=== PATIENT | male | born 2000 | race Two or more races ===

== ENCOUNTER 2022-05-04 17:01 | Emergency (ER) | payer SELFPAY ==
[2022-05-04 17:11] VITALS: PULSE 82; RESP 18; TEMP 36.8; O2SAT 97; BMI 32.0
[2022-05-04 20:34] LABS: Appearance Urine Turbid; Color Urine Yellow; Glucose Urine UA Negative (Negative); Leukocyte Esterase Urine Large (3+) (Negative); Nitrite Urine Negative (Negative); UMIC TRIGGER UACC YES; Urine Blood Moderate (2+) (Negative); Urine Ketones Negative (Negative); Urine Protein 100 (2+) mg/dL (Neg-Trace)
[2022-05-04 20:40] LABS: Bacteria Urine 1+ (None Seen); Hyaline Casts Urine 0-2 /LPF (0-2); Squamous Epithelial Cell Urine 0-2 /HPF (0-2); UACC Culture Trigger YES; WBC Urine >50 /HPF (0-5)
[2022-05-04 20:52] VITALS: BP 137/77; PULSE 71; RESP 16; TEMP 37.2; O2SAT 97
--- NOTE | 2022-05-04 22:05 | PC.NURSE ---
PT LEFT, US CANCELED.
== END 2022-05-04 22:08 | disposition left against medical advice (07) ==
PROVIDERS: Emergency Provider Emergency Medicine
DX: N48.89 Other specified disorders of penis (principal); Z79.899 Other long term (current) drug therapy
CPT/HCPCS: 81001; 87086; 99282

== ENCOUNTER 2022-05-05 11:47 | Emergency (ER) | payer SELFPAY ==
[2022-05-05 12:15] VITALS: BP 120/64; PULSE 82; RESP 18; TEMP 36.9; O2SAT 100; BMI 32.0
--- NOTE | 2022-05-05 12:15 | ED_ITS ---
HPI - General Adult General Chief complaint: General Medical <Charley Sherman MD - Last Filed: 05/05/22 12:36> Stated complaint: Genital pain <Charley Sherman MD - Last Filed: 05/05/22 12:36> Time Seen by Provider: 05/05/22 14:03 <Charley Sherman MD - Last Filed: 05/05/22 12:36> Source: patient <Joanna ArteagaCELE - Last Filed: 05/05/22 18:16> Mode of arrival: ambulatory <Joanna ArteagaCELE - Last Filed: 05/05/22 18:16> Limitations: no limitations <Joanna ArteagaCELE - Last Filed: 05/05/22 18:16> History of Present Illness HPI narrative: Patient is a 21-year-old male presents emergency department for evaluation of penile pain swelling inability to retract the foreskin. Patient states that approximately 4 days ago wall sleeping he awoke with an erect penis, upon turning onto his stomach he heard a popping noise, followed by some pain initially. However he was able to fall right back asleep. He reports no complications or pain over the following 2 days. However the past 2 days he has been experiencing swelling to the penis and inability to retract the foreskin. It is painful to touch. States it is not currently improved. He does endorse some burning sensation upon urination, and a whitish discharge to the penis. <Joanna ArteagaCELE - Last Filed: 05/05/22 18:16> Related Data Home medications: Previous Rx's Medication Instructions Recorded cefuroxime axetil 250 mg tablet 250 mg PO Q12H 7 days #14 tabs 05/05/22 <Charley Sherman MD - Last Filed: 05/05/22 12:36> Allergies/adverse reactions: Allergies Allergy/AdvReac Type Severity Reaction Status Date / Time No Known Allergies Allergy Verified 05/05/22 13:12 <Charley Sherman MD - Last Filed: 05/05/22 12:36> Review of Systems Review of Systems: Constitutional: No weight loss, fever, chills, weakness or fatigue. Skin: No rash or itching. Cardiovascular: No chest pain. No palpitations Respiratory: No shortness of breath, cough or sputum production. Gastrointestinal: No nausea, vomiting or diarrhea. No abdominal pain Genitourinary: As noted in HPI Musculoskeletal: No muscle pain, back pain, joint pain or stiffness. Psychiatric: No depression or anxiety. <Joanna Arteaga CNP - Last Filed: 05/05/22 18:16> Yes all other systems are reviewed and are negative <Joanna Arteaga CNP - Last Filed: 05/05/22 18:16> FORMERLY [facility], [facility] Past Medical History Attestation statement: The following information was validated with the patient. <Joanna Arteaga CNP - Last Filed: 05/05/22 18:16> Source: old records reviewed <Joanna Arteaga CNP - Last Filed: 05/05/22 18:16> Social History Social History: Social History Advance Directives: No Advance Directives Information Provided: No <Charley Sherman MD - Last Filed: 05/05/22 12:36> Physical Exam ED Vital Signs: Vital Signs - 24 hr 05/05/22 12:15 Temperature 98.5 F Pulse Rate 82 Respiratory Rate 18 Blood Pressure 120/64 Pulse Oximetry 100 Oxygen Delivery Method Room Air BMI result Body Mass Index 32.0 <Charley Sherman MD - Last Filed: 05/05/22 12:36> Vital Signs - 24 hr 05/05/22 12:15 Temperature 98.5 F Pulse Rate 82 Respiratory Rate 18 Blood Pressure 120/64 Pulse Oximetry 100 Oxygen Delivery Method Room Air BMI result Body Mass Index 32.0 <Joanna Arteaga CNP - Last Filed: 05/05/22 18:16> Appearance: Alert.?Oriented to person, place and time. No acute distress.?Normal affect. Eyes: Pupils equal, round and reactive to light.? ENT: Pharynx normal.?? Neck: Normal inspection.? Neck supple.?? CVS: Heart sounds normal. Normal heart rate and rhythm.? Pulses normal.?? Respiratory: No respiratory distress.? Lung sounds clear to auscultation bilaterally?? Abdomen: Soft and non-tender. Normoactive bowel sounds. Genitourinary: performed with research electrician, ED PASHA Campbell; Phimosis present, unable to visualize the glans, tenderness upon palpation to the shaft however is soft, without any lesions, rashes, no testicular swelling? Skin: Skin warm and dry.? Normal skin color.? Extremities: No lower extremity edema.? Neuro: Moves all extremities spontaneously. Sensation intact bilaterally. No focal neuro deficits. Ambulates with normal steady gait. <Joanna Arteaga CNP - Last Filed: 05/05/22 18:16> Course Course Course Narrative: -pt c/o 2 days of hearing something popping and penis started becoming swollen, pt states that he cannot pull the foreskin back to clean -c/o of mild disuria -took ibuprofen -came yesterday, gave urine sample, left without being seen -on PE: glands very swollen, foreskin covering the glands, cannot be pulled back, painful to touch, no priapism, whitish discharge present -CT NG and UA pending, discussed with triage nurse and PA to give priority to this pt <Charley Sherman MD - Last Filed: 05/05/22 12:36> Reevaluation(s) Reevaluation #1: Patient is a 21-year-old male who presents emergency department for evaluation of penile pain and swelling. Denies any concern for sexually transmitted infections. He does report pain with urination, urinalysis reveals leukocyte esterase and wbc's to be present without any evidence of bacteriuria. Lower suspicion for urinary tract infection at this time, however given pain will treat prophylactically with antibiotic and follow urine culture. Testing for chlamydia and gonorrhea are pending at this time. Phimosis present on examination, glans not visualized. Discussed this case with Urology Dr. Garcia, advised outpatient follow-up in urology office. Worsening signs and symptoms to return back to the emergency department for. All questions answered. Patient discharged home in stable condition. <Joanna Arteaga CNP - Last Filed: 05/05/22 18:16> Time: 14:51 <Joanna Arteaga CNP - Last Filed: 05/05/22 18:16> Medical Decision Making Medical Records Medical records reviewed: Yes I reviewed the patient's medical records. <Joanna Arteaga CNP - Last Filed: 05/05/22 18:16> Lab Data Lab results reviewed: Yes I reviewed the patient's lab results. <Joanna Arteaga CNP - Last Filed: 05/05/22 18:16> Labs: Lab Results 05/05/22 Range/Units 12:32 Urine Color Yellow Urine Appearance Cloudy Urine pH 7.5 (5.0-9.0) Ur Specific [place] 1.015 (1.005-1.025) Urine Protein Trace (Neg-Trace) mg/dL Urine Glucose (UA) Negative (Negative) mg/dL Urine Ketones Negative (Negative) mg/dL Urine Blood Trace (Negative) Urine Nitrite Negative (Negative) Ur Leukocyte Esterase Large (3+) H (Negative) Urine RBC 3-5 H (0-2) /HPF Urine WBC >50 (0-5) /HPF Ur Squamous Epith Cells 0-2 (0-2) /HPF Urine Bacteria None Seen (None Seen) Hyaline Casts 0-2 (0-2) /LPF <Charley Sherman MD - Last Filed: 05/05/22 12:36> Lab Results 05/05/22 Range/Units 12:32 Urine Color Yellow Urine Appearance Cloudy Urine pH 7.5 (5.0-9.0) Ur Specific [place] 1.015 (1.005-1.025) Urine Protein Trace (Neg-Trace) mg/dL Urine Glucose (UA) Negative (Negative) mg/dL Urine Ketones Negative (Negative) mg/dL Urine Blood Trace (Negative) Urine Nitrite Negative (Negative) Ur Leukocyte Esterase Large (3+) H (Negative) Urine RBC 3-5 H (0-2) /HPF Urine WBC >50 (0-5) /HPF Ur Squamous Epith Cells 0-2 (0-2) /HPF Urine Bacteria None Seen (None Seen) Hyaline Casts 0-2 (0-2) /LPF <Joanna Arteaga CNP - Last Filed: 05/05/22 18:16> Discharge Plan Discharge Clinical Impression: Acquired phimosis of penis <Charley Sherman MD - Last Filed: 05/05/22 12:36> Patient Disposition: Home, Self-Care <Charley Sherman MD - Last Filed: 05/05/22 12:36> Additional Instructions: This may be caused by infection, inflammation, or trauma. As discussed, do not try to forcefully retract the foreskin. This may cause the foreskin to become stuck behind the head of the penis which is an emergent situation. You can take ibuprofen 200 mg, 3 tablets (600mg) every 6-8 hours as needed for pain, in addition to Tylenol 500 mg, 2 tablets (1,000mg) every 4-6 hours as needed for pain, but not to exceed 3 doses daily (3,000mg).? You have been given a prescription for an antibiotic to take twice daily for 5 days Contact urology office to arrange for follow-up visit within the next 3-5 days Return back to emergency department any new or worsening symptoms or concerns. <Charley Sherman MD - Last Filed: 05/05/22 12:36> Prescriptions: New cefuroxime axetil 250 mg tablet 250 mg PO Q12H 7 Days Qty: 14 0RF <Charley Sherman MD - Last Filed: 05/05/22 12:36> Referrals: Elliott Garcia MD [Physician] - <Charley Sherman MD - Last Filed: 05/05/22 12:36> Interventions: ED Discharge Assessment Last Done: 05/05/22 15:22 <Charley Sherman MD - Last Filed: 05/05/22 12:36> Discharge Date/Time: 05/05/22 15:28 <Charley Sherman MD - Last Filed: 05/05/22 12:36>
[2022-05-05 12:40] LABS: Appearance Urine Cloudy; Color Urine Yellow; Glucose Urine UA Negative (Negative); Leukocyte Esterase Urine Large (3+) (Negative); Nitrite Urine Negative (Negative); PH 7.5 (5.0-9.0); Specific Gravity - Urine 1.015 (1.005-1.025); UMIC TRIGGER UACC YES; Urine Blood Trace (Negative); Urine Ketones Negative (Negative); Urine Protein Trace mg/dL (Neg-Trace)
[2022-05-05 13:03] LABS: Bacteria Urine None Seen (None Seen); Hyaline Casts Urine 0-2 /LPF (0-2); Squamous Epithelial Cell Urine 0-2 /HPF (0-2); UACC Culture Trigger YES; WBC Urine >50 /HPF (0-5)
[2022-05-06 05:33] LABS: CT PCR NOT DETECTED (Not Detect.); NG PCR DETECTED (Not Detect.)
== END 2022-05-05 15:28 | disposition home or self-care (01) ==
PROVIDERS: Emergency Medicine; Emergency Provider Emergency Medicine Emergency Medical Services
DX: N47.1 Phimosis (principal)
CPT/HCPCS: 81001; 87491; 87591; 99283